=== PATIENT | female | born 1940 | race Caucasian/White ===

== ENCOUNTER 2024-01-13 11:45 | Outpatient (REF) | payer MEDICARE, SELFPAY ==
[2024-01-13 14:46] LABS: Syphilis Screen Nonreactive (Nonreactive)
[2024-01-13 14:59] LABS: Folate 7.8 ng/mL (> or = 4.0)
[2024-01-13 16:11] LABS: Vitamin B12 346 pg/mL (200-900)
== END 2024-01-13 11:46 | disposition home or self-care (01) ==
LOC: HO.HMGCLDS 11:45
PROVIDERS: Visit Provider Internal Medicine
DX: R41.3 Other amnesia (principal)
CPT/HCPCS: 36415; 82607; 82746; 86780